=== PATIENT | female | born 1965 | race Caucasian/White ===

== ENCOUNTER 2017-05-27 18:34 | Emergency (ER) | payer BC ==
[~2017-05-27] VITALS: Ht 175.3 cm; Wt 105.7 kg
[~2017-05-27 18:34] MED LIST: ENDOCET 5-3251 EACH PO; LYRICA50 MG PO; Motrin PO; NOHOMEMEDS; PERCOCET 5/31 TABLET PO; TOPAMAX100 MG PO; ZOLOFT100 M1 PO; ZOLOFT100 MG PO
[2017-05-27 20:01] LABS: MCH 26.5 PG (29.0-34.0); MCHC 31.4 G/DL (30.0-36.0); MCV 84.2 FL (83-99); MEAN PLAT.VOLUME 9.8 uM^3 (9.5-12.4); PLATELET COUNT 247 K/uL (156-360); RBC DIS.WIDTH-CV 14.2 % (11.8-14.6); RBC DIS.WIDTH-SD 43.7 % (39-53); RED BLOOD COUNT 4.99 M/uL (3.80-5.20); WHITE BLOOD COUNT 10.8 K/uL (4.1-10.2)
[2017-05-27 20:21] LABS: CHLORIDE 109 mEq/L (99-109); POTASSIUM 4.1 mEq/L (3.7-5.4); SODIUM 140 mEq/L (136-147)
[2017-05-27 20:23] LABS: GLUCOSE 111 mg/dL (70-99)
[2017-05-27 20:24] LABS: ANION GAP 7 MEQ/L (2-14)
[2017-05-27 20:25] LABS: TOTAL BILIRUBIN 0.4 mg/dL (0.0-1.0)
[2017-05-27 20:27] LABS: ALKALINE PHOSPHATASE 116 IU/L (3-129); GFR ESTIMATE (CALCULATED) > 59 mL/min/
[2017-05-27 20:28] LABS: UREA NITROGEN (BUN) 28 mg/dL (9-23)
[2017-05-27 20:29] LABS: ADD MIUA? YES; BILIRUBIN NEGATIVE; BLOOD NEGATIVE; COLOR YELLOW ((YELLOW)); GLUCOSE (STRIP) NEGATIVE; KETONES NEGATIVE; LEUKOCYTES TRACE; NITRITE NEGATIVE; PROTEIN (STRIP) 30; SPECIFIC GRAVITY 1.025 (1.000-1.030); UROBILINOGEN 0.2 MG/DL (0.2-1.0)
[2017-05-27 20:35] LABS: QUANTITATIVE HCG 4.3 MIU/ML
[2017-05-27 21:06] LABS: EPITHELIAL CELLS 1+ /HPF; MUCUS 3+ /LPF; RED BLOOD CELLS 0-5 /HPF (0-5); WHITE BLOOD CELLS 0-5 /HPF (0-5)
[2017-05-27 21:07] LABS: BACTERIA 1+ /HPF; CASTS NONE SEEN /LPF; CRYSTALS NONE SEEN; UCUL ADDED? NO
[2017-05-28 00:03] LABS: LIPASE 22 U/L (1.0-51.0)
[2017-05-28] MEDS ORDERED: ZOFRAN ODT4 MG PO (01:09)
[2017-05-28] MEDS ORDERED: NAPROXEN500 MG PO (01:09)
[2017-05-28 01:28] VITALS: BP 111/62
== END 2017-05-28 01:32 | disposition home or self-care (01) ==
LOC: RME 18:34 → EME 18:34 → RME 05-28 01:32
DX: N83.202 Unspecified ovarian cyst, left side (principal); M79.7 Fibromyalgia; F32.9 Major depressive disorder, single episode, unspecified
CPT/HCPCS: 74177; 80053; 81003; 83690; 84702; 85027; 87086; 99281; 99285; J2270; J7030

== ENCOUNTER → 2018-03-26 | Outpatient (CLI) | payer OTHER ==
[~2018-03-26] MED LIST changes: +NAPROXEN500 MG PO; +ZOFRAN ODT4 MG PO
== END | disposition home or self-care (01) ==
LOC: NUC 08:47
DX: R10.84 Generalized abdominal pain (principal); R11.2 Nausea with vomiting, unspecified; R14.0 Abdominal distension (gaseous)
CPT/HCPCS: 78227; A9510; J2805